=== PATIENT | male | born 1950 | race Caucasian/White ===

== ENCOUNTER 2016-05-25 09:34 | Emergency (ER) | payer OTHER ==
[~2016-05-25] VITALS: Ht 190.5 cm; Wt 88.6 kg
[2016-05-25 09:49] VITALS: BP 144/87; PULSE 88; RESP 14; O2SAT 95
--- NOTE | 2016-05-25 10:35 | ED.REPORT ---
HPI-Psychiatric Illness Date of Service May 25, 2016 ED Provider: Mk Naik MD Pt is a homeless 66 year old male with a history of depression who presents to the ED with concerns for suicidal ideation. He reports that he has recently been incarcerated, and was then residing at [facility]. Pt was evicted from this facility due to not keeping up on his chores. Pt reports that he is suicidal with a plan. He reports that he has "knives in his car" , and has a history of self-induced lacerations. Pt denies any homicidal ideations, substance abuse, or any other concerns. He states that his depression is worsening with the cold weather. Pt denies any fevers, chills, cough, chest pain , shortness of breath or any other physical symptoms. Nursing Notes Stated Complaint: SUICIDAL THOUGHTS Chief Complaint: Psychiatric Complaint Nursing Notes Reviewed: Yes Allergies: Coded Allergies: No Known Allergies (Unverified Allergy, Unknown, 02/08/16) General Time Seen by MD: 10:20 Chief Complaint Suicidal ideation Hx Obtained From: Patient Arrived By: Walk-in Onset Occurred: Onset unknown Symptom Duration: Intermittent Severity: Current: No pain currently Severity: Maximum: No pain Similar Sx Previous: Yes Risk-Psychiatric Illness Suicide Risk Stratification RF Statements: Risk factors reviewed Past Medical History Past Medical History PTSD Bipolar Reports: Cancer Reports: Depression Past Surgical History Hand surgery for a Fx Prostate Family History Noncontributory Smoking History Never Smoker Social History Alcohol Use: >5 per day Drug Use: Denies drug use Other Social History: Local resident Ambulatory Status Independent Review of Systems Constitutional: Denies: Chills, Fever, Malaise Respiratory: Denies: Non-productive cough, Shortness of breath, Wheezing Cardiovascular: Denies: Chest pain GI: Denies: Abdominal pain, Constipation, Diarrhea, Nausea, Vomiting Skin: Denies Diaphoresis Neurologic: Denies: Change LOC, Dizziness, Headache, Syncope, Weakness Psychiatric: Reports: Depression, Suicidal ideation Complete sys rev & neg: except as marked. Physical Exam Initial Vital Signs Vital Signs (First) Date Time Temp Pulse Resp B/P Pulse Ox O2 Delivery O2 Flow Rate FiO2 05/25/16 09:49 36.3 88 14 144/87 95 Room Air Initial VS: Reviewed Head / Eyes: Atraumatic, Normocephalic, PERRL ENT: Mucous membranes moist, Conjunctiva normal, No scleral icterus Neck: Supple, Non-tender, Full range of motion Respiratory: Breath sounds normal, Clear to auscultation, No respiratory distress Skin: Warm, Dry, No cyanosis General/Constitutional: Awake, Alert, Well appearing, Well nourished Neurologic: Oriented X3, Speech NL, No motor deficits, No sensory deficits, CN II - XII intact Psychiatric: Affect NL, Not homicidal, No hallucinations, Judgment/insight NL Abnormal Mood/Affect: Positive: Depressed Abnormal Thinking / Perception: Positive: Suicidal, with plan Re-Eval/Medical Decision Source of Hx: Old records Re-Evaluation/Progress : Time of Eval: 12:16 Re-Evaluation/Progress Note: Pt is rechecked and informed of the plan to discharge him at this time, he understands and agrees, all questions are addressed. Counseled Regarding: Diagnosis, When/why to return to ED Discharge & Departure Impression: Primary Impression: Suicidal ideation Disposition: Home Discharge Condition All VS Reviewed: Yes Condition: Stable Additional Instructions: Go directly to crisis respite. Referrals: [facility] (PCP) Scribe Attestation Portions of this note were transcribed by Juany Howard. I, Dr. Naik personally performed the history, physical exam and medical decision-making; I reviewed and confirmed the accuracy of the information in the transcribed note. Signed by: Juany Zarate, 05/25/2016 12:19 copies to: [facility] Mk Naik MD May 25, 2016 10:35 BART HOWARD May 25, 2016 10:44
== END 2016-05-25 12:25 | disposition home or self-care (01) ==
LOC: SED 09:34
DX: R45.851 Suicidal ideations (principal); Z59.0 Homelessness

== ENCOUNTER 2016-07-13 07:44 | Emergency (ER) | payer OTHER ==
[~2016-07-13] VITALS: Ht 190.5 cm; Wt 86.4 kg
[2016-07-13 07:48] VITALS: BP 158/90; PULSE 94; RESP 16; O2SAT 98
--- NOTE | 2016-07-13 07:56 | ED.REPORT ---
HPI-Psychiatric Illness Date of Service Jul 13, 2016 ED Provider: Kristofer Bustamante Patient is a 66 year old male with a history of depression who presents to the ED complaining of suicidal ideations. Associated symptoms include ideations of self harm and claims that he has many knives in his van. He denies homicidal ideations, hallucinations, or any other symptoms. [facility] that [facility] not [facility]. He states that he has "many legal issues" and is at his wits end about what to do. He says "I don't want to kill myself but I was getting ready to hurt myself". He was started on Effexor 4 days ago. He is currently homeless and living in his van. Nursing Notes Stated Complaint: DEPRESSION/SUICIDAL Chief Complaint: Psychiatric Complaint Nursing Notes Reviewed: Yes Allergies: Coded Allergies: No Known Allergies (Unverified Allergy, Unknown, 02/08/16) General Time Seen by MD: 07:55 Chief Complaint Depressed Hx Obtained From: Patient Arrived By: Walk-in Similar Sx Previous: Yes Risk-Psychiatric Illness Suicide Risk Stratification Suicide Risk Factors - Adult: : Alcohol useNo: Previous attempt, Prior psych admission RF Statements: Risk factors reviewed Past Medical History Past Medical History PTSD Bipolar Reports: Cancer Reports: Depression Past Surgical History Hand surgery for a Fx Prostate Family History Noncontributory Smoking History Former Smoker Social History Self mutilation (cutting wrists) Living in his van Alcohol Use: >5 per day Drug Use: Denies drug use Other Social History: Local resident, Homeless Ambulatory Status Independent Review of Systems Psychiatric: Reports: Depression, Suicidal ideation (Ideation of self-harm), Denies: Hallucinations, auditory, Hallucinations, visual, Homicidal ideation Complete sys rev & neg: except as marked. Physical Exam Initial Vital Signs Vital Signs (First) Date Time Temp Pulse Resp B/P Pulse Ox O2 Delivery O2 Flow Rate FiO2 07/13/16 07:48 35.8 94 16 158/90 98 Room Air Initial VS: Reviewed Head / Eyes: Atraumatic, Normocephalic Neck: Full range of motion Abdomen / GI: Soft, Non-tender Skin: Warm, Dry General/Constitutional: Awake, Alert, Well developed Neurologic: Oriented X3, Speech NL Psychiatric: Not homicidal Abnormal Mood/Affect: Positive: Depressed Respiratory / Chest: Breath sounds NL, Breath sounds = bilat, No respiratory distress Cardiovascular: Heart rate NL, Regular rhythm Interpretation & Diagnostics Lab Results Interpretation Result Diagram: 07/13/16 0820 07/13/16 0820 Test 07/13/16 08:20 07/13/16 08:58 07/13/16 09:10 White Blood Count 4.1th/mm3 (3.8-10.1) Red Blood Count 4.81mil/mm3 (4.40-5.80) Hemoglobin 15.4g/dL (13.8-17.2) Hematocrit 45.3% (41.0-50.0) Mean Corpuscular Volume 94.2fL (81-100) Mean Corpuscular Hemoglobin 32.0pg (27.0-35.0) Mean Corpuscular Hemoglobin Concent 34.0% (32.0-37.0) Red Cell Distribution Width 12.7% (12.3-15.4) Platelet Count 175bil/L (150-400) Neutrophils (%) (Auto) 56.9% (40-74) Lymphocytes (%) (Auto) 29.6% (14-46) Monocytes (%) (Auto) 11.8% (4-12) Eosinophils (%) (Auto) 1.2% (0-5) Basophils (%) (Auto) 0.5% (0-3) Sodium Level 137mEq/L (134-144) Potassium Level 4.4mEq/L (3.5-5.2) Chloride Level 98mEq/L (97-108) Carbon Dioxide Level 23mmol/L (18-29) Blood Urea Nitrogen 16mg/dL (8-27) Creatinine 0.76mg/dL (0.76-1.27) Estimat Glomerular Filtration Rate 108mL/min (>59) Glucose Level 164mg/dL (60-99) Calcium Level 9.5mg/dL (8.5-10.1) Total Bilirubin 0.7mg/dL (0.0-1.2) Aspartate Amino Transf (AST/SGOT) 27U/L (0-50) Alanine Aminotransferase (ALT/SGPT) 16U/L (0-44) Alkaline Phosphatase 67U/L (25-160) Total Protein 7.1g/dL (6.4-8.4) Albumin 4.5g/dL (3.4-5.0) Thyroid Stimulating Hormone (TSH) 1.840uIU/mL (0.450-4.500) Hold Jackson Top Tube Received (Received) Hold Urine Received (Received) Re-Eval/Medical Decision Med Decision/Clinical Course 66-year-old male history of depression and homelessness presenting complaining of thoughts of hurting himself with a knife. When I evaluated him he did not have any intent. Denies any HI. He was more frustrated about living in his car and some legal problems he is going through. No workup was normal. direct service worker saw the patient and thought likely not suicidal risk and stable for discharge. Patient denied SI at time of discharge. He agrees to return immediately should he have any thoughts of hurting himself or others. Re-Evaluation/Progress #1: Time of Eval: 10:45 )( Re-Eval Psychiatric: No danger to self Re-Evaluation/Progress Note: direct service worker informs that patient's "legal troubles" are his 2 DUI's. Will try to contact [facility] to assist patient. Re-Evaluation/Progress #2: Time of Eval: 11:56 )( Re-Eval Psychiatric: No danger to self, No danger to others, No suicidal ideation Re-Evaluation/Progress Note: Discussed plan for discharge. Patient understands and agrees with plan. All questions addressed at this time. Consultation : Consulted With: direct service worker Call Returned at: 11:43 Note: direct service worker evaluated patient and resources. Patient is considered low risk, given resources, and is safe to discharge. Counseled Regarding: Diagnosis, Lab results, Need for follow-up, When/why to return to ED Discharge & Departure Impression: Primary Impression: Suicidal ideation Additional Impression: Depression )( Condition at Discharge: No danger to self, No danger to others, No suicidal ideation, No homicidal ideation Disposition: Home Discharge Condition All VS Reviewed: Yes Condition: Improved Additional Instructions: Thank you for entrusting us with your care. Follow up with the resources the perinatal social worker has provided you. Return to the emergency department immediately if you feel like hurting yourself or others. Referrals: [facility] (PCP) Scribe Attestation Portions of this note were transcribed by Vinay Mahoney. I, Dr. Bustamante personally performed the history, physical exam and medical decision-making; I reviewed and confirmed the accuracy of the information in the transcribed note. Signed by: Vinay Mahoney 07/13/16, 1150 copies to: [facility] Kristofer Bustamante MD Jul 13, 2016 07:56 VINAY MAHONEY Jul 13, 2016 08:07
[2016-07-13 08:32] LABS: BASOPHILS % (AUTO) 0.5 % (0-3); EOSINOPHILS % (AUTO) 1.2 % (0-5); MONOCYTES % (AUTO) 11.8 % (4-12); Mean Corpuscular Volume 94.2 fL (81-100); NEUTROPHILS % (AUTO) 56.9 % (40-74); Platelet Count 175 bil/L (150-400)
[2016-07-13 12:24] VITALS: BP 137/77; PULSE 63; RESP 16; O2SAT 99
== END 2016-07-13 12:25 | disposition home or self-care (01) ==
LOC: SED 07:44
DX: R45.851 Suicidal ideations (principal); F32.9 Major depressive disorder, single episode, unspecified; Z87.891 Personal history of nicotine dependence

== ENCOUNTER 2016-07-15 09:52 | Emergency (ER) | payer OTHER ==
[~2016-07-15] VITALS: Ht 190.5 cm; Wt 86.4 kg
[2016-07-15 10:12] VITALS: BP 150/99; PULSE 66; RESP 18; O2SAT 97
--- NOTE | 2016-07-15 11:19 | ED.REPORT ---
HPI-Psychiatric Illness Date of Service Jul 15, 2016 ED Provider: Doc,Ed History of Present Illness: "suicidial again" called the [place] hot line. plan is any way he can. homeless for 5 months, [place] has no housing per community action. keys are locked in the car since last night. liscense is suspended. Has been staying in the car for a few months "can't do it anymore" primary care is [place] saw psychologist last week given effexor 07/09/2016 started no help so far.life long etoh, last drink friday treatment times 3 times, legal problems Nursing Notes Stated Complaint: SUICIDAL IDEATION Chief Complaint: Psychiatric Complaint Allergies: Coded Allergies: No Known Allergies (Unverified Allergy, Unknown, 02/08/16) Scheduled Venlafaxine ER (Effexor XR) 75 Mg Capsule 75 MG PO DAILY General Time Seen by MD: 11:19 Chief Complaint Suicidal ideation, Other (homeless) Hx Obtained From: Patient Risk-Psychiatric Illness Suicide Risk Stratification Suicide Risk Factors - Adult: : Alcohol use: Previous attempt (was a plastic cutter the ): Prior psych admission (many times for depression at the [place] and here) : Substance abuseNo: Access to firearms, Close associate suicide, Family Hx of Suicide RF Statements: Risk factors reviewed Past Medical History Past Medical History etoH abuse Reports: Cancer Reports: Depression Past Surgical History Hand surgery for a Fx Prostate Family History Noncontributory Smoking History Former Smoker (quit in ) Social History Self mutilation (cutting wrists) Living in his van Alcohol Use: >5 per day Drug Use: Denies drug use Other Social History: Local resident, Homeless (for the last 5 months 07/15/2016) Ambulatory Status Independent Review of Systems Basic Review of Systems Eyes: Vision NL Hematologic: No bleeding, No bruising Allergy / Immune: No allergy Physical Exam Initial Vital Signs Vital Signs (First) Date Time Temp Pulse Resp B/P Pulse Ox O2 Delivery O2 Flow Rate FiO2 07/15/16 10:12 36.7 66 18 150/99 97 Room Air Initial VS: Reviewed, Vital signs normal Head / Eyes: Atraumatic, Normocephalic, PERRL ENT: Mucous membranes moist, Conjunctiva normal, No scleral icterus Neck: Supple, Non-tender, Full range of motion Respiratory: Breath sounds normal, Clear to auscultation, No respiratory distress Cardiovascular: Regular rate & rhythm, Heart sounds normal, Intact distal pulses Abdomen / GI: Soft, Non-tender, No guarding, No rebound, No distention Back: No CVA tenderness Lymphatic: No lymphadenopathy Extremities: Vascular intact, Neuro intact, No swelling, No tenderness Skin: Warm, Dry, No cyanosis General/Constitutional: Awake, Alert, No acute distress, Well appearing, Well developed, Well hydrated, Well nourished, Cooperative, Not toxic appearing Neurologic: Oriented X3, Speech NL, No motor deficits Psychiatric: Affect NL, Mood NL patient with many social stressors. Consult with [facility] Respiratory / Chest: Atraumatic, Breath sounds NL, Breath sounds = bilat, No respiratory distress Cardiovascular: Heart rate NL, Regular rhythm, Heart sounds NL, No gallop Interpretation & Diagnostics Lab Results Interpretation Result Diagram: 07/15/16 1140 07/15/16 1140 Test 07/15/16 11:40 White Blood Count 3.9th/mm3 (3.8-10.1) Red Blood Count 4.60mil/mm3 (4.40-5.80) Hemoglobin 14.5g/dL (13.8-17.2) Hematocrit 43.0% (41.0-50.0) Mean Corpuscular Volume 93.5fL (81-100) Mean Corpuscular Hemoglobin 31.5pg (27.0-35.0) Mean Corpuscular Hemoglobin Concent 33.7% (32.0-37.0) Red Cell Distribution Width 12.5% (12.3-15.4) Platelet Count 173bil/L (150-400) Neutrophils (%) (Auto) 56.0% (40-74) Lymphocytes (%) (Auto) 29.9% (14-46) Monocytes (%) (Auto) 12.2% (4-12) Eosinophils (%) (Auto) 1.6% (0-5) Basophils (%) (Auto) 0.3% (0-3) Sodium Level 136mEq/L (134-144) Potassium Level 4.2mEq/L (3.5-5.2) Chloride Level 97mEq/L (97-108) Carbon Dioxide Level 25mmol/L (18-29) Blood Urea Nitrogen 12mg/dL (8-27) Creatinine 0.75mg/dL (0.76-1.27) Estimat Glomerular Filtration Rate 110mL/min (>59) Glucose Level 99mg/dL (60-99) Calcium Level 8.9mg/dL (8.5-10.1) Total Bilirubin 0.6mg/dL (0.0-1.2) Aspartate Amino Transf (AST/SGOT) 27U/L (0-50) Alanine Aminotransferase (ALT/SGPT) 14U/L (0-44) Alkaline Phosphatase 61U/L (25-160) Total Protein 6.9g/dL (6.4-8.4) Albumin 4.4g/dL (3.4-5.0) Thyroid Stimulating Hormone (TSH) 1.610uIU/mL (0.450-4.500) Hold Jackson Top Tube Received (Received) Lab Results Interpretation: ETOH is negative Re-Eval/Medical Decision Med Decision/Clinical Course 66 year old male with many social stressors presents with SI. vegetable worker evualates him and [facility] something he needs. Discharge & Departure Impression: Primary Impression: Acute situational disturbance Additional Instructions: Social work has arranged to have the police come and try to open your car. You then need to go [facility] to [facility] and sit until you get a response as to how much help you can expect [facility] the [facility]. If you dod not get an answer to day , return tomorrow. You may also request alcohol treatment from them, that may be helpful. [facility] [place] Referrals: [facility]) EDSupervising Provider for APC: Mk Naik MD copies to: [facility] Ayanna Natarajan Jul 15, 2016 11:19
[2016-07-15] MEDS ORDERED: VENL75CA PO (11:28)
[2016-07-15 11:50] LABS: BASOPHILS % (AUTO) 0.3 % (0-3); EOSINOPHILS % (AUTO) 1.6 % (0-5); MONOCYTES % (AUTO) 12.2 % (4-12); Mean Corpuscular Hemoglobin 31.5 pg (27.0-35.0); Mean Corpuscular Volume 93.5 fL (81-100); Platelet Count 173 bil/L (150-400)
[2016-07-15 13:34] VITALS: BP 128/68; PULSE 68; RESP 20; O2SAT 98
== END 2016-07-15 13:35 ==
LOC: SED 09:52
DX: F43.0 Acute stress reaction (principal); Z87.891 Personal history of nicotine dependence; Z59.0 Homelessness

== ENCOUNTER 2016-07-15 15:51 | Emergency (ER) | payer OTHER ==
[~2016-07-15 15:51] MED LIST: VENL75CA PO
[2016-07-15 15:53] VITALS: BP 144/79; PULSE 71; RESP 16; O2SAT 97
--- NOTE | 2016-07-15 15:56 | ED.REPORT ---
HPI-Psychiatric Illness Date of Service Jul 15, 2016 ED Provider: History of Present Illness: [facility]. "Was sent there earlier today to discuss housing options" Sent back to the ER for SI evualation Nursing Notes Stated Complaint: PSYCH EVAL Chief Complaint: Psychiatric Complaint Nursing Notes Reviewed: Yes Allergies: Coded Allergies: No Known Allergies (Unverified Allergy, Unknown, 02/08/16) Scheduled Venlafaxine ER (Effexor XR) 75 Mg Capsule 75 MG PO DAILY General Time Seen by MD: 15:55 Chief Complaint Suicidal ideation, Other (homeless) Hx Obtained From: Patient Onset Occurred: More than a week ago... (5 months) Symptom Duration: Since onset Risk-Psychiatric Illness Suicide Risk Stratification Suicide Risk Factors - Adult: : Alcohol use: Previous attempt (cutting): Prior psych admission (many times): Substance abuseNo: Access to firearms, Close associate suicide, Family Hx of Suicide RF Statements: Risk factors reviewed Past Medical History Past Medical History etoH abuse Reports: Cancer Reports: Depression Past Surgical History Hand surgery for a Fx Prostate Family History Noncontributory Smoking History Former Smoker Social History Self mutilation (cutting wrists) Living in his van Alcohol Use: >5 per day Drug Use: Denies drug use Other Social History: Local resident, Homeless Ambulatory Status Independent Review of Systems Basic Review of Systems Eyes: Vision NL Hematologic: No bleeding, No bruising Allergy / Immune: No allergy Physical Exam Initial Vital Signs Vital Signs (First) Date Time Temp Pulse Resp B/P Pulse Ox O2 Delivery O2 Flow Rate FiO2 07/15/16 15:53 36.1 71 16 144/79 97 Room Air Initial VS: Reviewed, Vital signs normal Head / Eyes: Atraumatic, Normocephalic, PERRL ENT: Mucous membranes moist, Conjunctiva normal, No scleral icterus Neck: Supple, Non-tender, Full range of motion Respiratory: Breath sounds normal, Clear to auscultation, No respiratory distress Cardiovascular: Regular rate & rhythm, Heart sounds normal, Intact distal pulses Abdomen / GI: Soft, Non-tender, No guarding, No rebound, No distention Back: No CVA tenderness Lymphatic: No lymphadenopathy Extremities: Vascular intact, Neuro intact, No swelling, No tenderness Skin: Warm, Dry, No cyanosis General/Constitutional: Awake, Alert, No acute distress, Well appearing, Well developed, Well hydrated, Well nourished, Cooperative, Not toxic appearing Neurologic: Oriented X3, Speech NL, No motor deficits, No sensory deficits, CN II - XII intact, Reflexes equal bilat Psychiatric: Affect NL, Mood NL Head / Eyes: Atraumatic, Normocephalic, PERRL, EOMI Respiratory / Chest: Atraumatic, Breath sounds NL, Breath sounds = bilat, No respiratory distress Cardiovascular: Heart rate NL, Regular rhythm, Heart sounds NL Abdomen: Atraumatic, Soft, Non-tender Interpretation & Diagnostics Lab Results Interpretation Test 07/15/16 19:53 Hold Urine Received (Received) Lab Results Interpretation: u tox is negative Re-Eval/Medical Decision Med Decision/Clinical Course 66 year old male returns to the ER after being sent to the [place] for help with housing. Patient has many social stressors having been living in his care for the last 5 months. Patient is accepted at [facility] and will be transported there. [place] is in charge of transport and am awaiting phone call with timing. [place] requests [facility] and vitals right before transport. care turned over to Dr. Lozano Discharge & Departure Impression: Primary Impression: Acute situational disturbance Disposition: Transfer, [place] EDSupervising Provider for APC: Shalom Lozano MD copies to: [facility] Ayanna Natarajan Jul 15, 2016 15:56 Ayanna Natarajan Jul 15, 2016 15:56
[2016-07-15 21:47] VITALS: BP 103/67; PULSE 88; O2SAT 97
[2016-07-15 22:29] VITALS: BP 103/67; PULSE 88; RESP 16; O2SAT 97
== END 2016-07-15 22:30 ==
LOC: SED 15:51
DX: F43.0 Acute stress reaction (principal); F32.9 Major depressive disorder, single episode, unspecified; Z59.0 Homelessness; Z87.891 Personal history of nicotine dependence; Z85.9 Personal history of malignant neoplasm, unspecified; Z91.5 Personal history of self-harm

== ENCOUNTER 2016-07-23 05:57 | Emergency (ER) | payer OTHER ==
[~2016-07-23] VITALS: Ht 190.5 cm; Wt 88.6 kg
[2016-07-23 06:03] VITALS: BP 152/93; PULSE 77; RESP 16; O2SAT 98
--- NOTE | 2016-07-23 06:09 | ED.REPORT ---
HPI-General Illness Date of Service Jul 23, 2016 ED Provider: Joon Bradshaw MD The patient is a 66 year old male with history of alcohol abuse, self mutilation , and depression, who presents to the emergency department complaining of depression and homelessness. The patient states he was recently admitted to the [facility] for 1 week for similar symptoms and was discharged yesterday. The patient states he came back to [place] to fill out his social security and go to a court review. When he got to court yesterday he was wet and started to feel like he did before he was admitted. He does not feel like his depression is improving. He is currently on Effexor for his depression. He does not have any family or support in the area. He has been homeless for 6 months. He is currently getting $1072 a month from the [place] pension but has been unable to be organized enough to get a place to live. He does report thoughts of suicide but he does not have any active plans. He does not have a counselor or psychiatrist that he sees regularly. He denies any physical complaints. Nursing Notes Stated Complaint: DEPRESSED/HOMELESS Chief Complaint: Psychiatric Complaint Nursing Notes Reviewed: Yes Allergies: Coded Allergies: No Known Allergies (Unverified Allergy, Unknown, 02/08/16) Scheduled Venlafaxine ER (Effexor XR) 75 Mg Capsule 75 MG PO DAILY General Time Seen by MD: 06:08 Chief Complaint Other (depressed/homeless) Hx Obtained From: Patient Arrived By: Walk-in Sudden in Onset?: No Onset Occurred: More than a week ago... Symptom Duration: Since onset Severity: Current: No pain currently Severity: Maximum: No pain Recent Healthcare: Recent doctor visit, Recent hospitalization Similar Sx Previous: Yes Past Medical History Past Medical History EtOH abuse Reports: Cancer Reports: Depression Past Surgical History Hand surgery for a Fx Prostate surgery Family History Noncontributory Smoking History Former Smoker Social History Self mutilation (cutting wrists) Alcohol abuse Living in his van Alcohol Use: >5 per day Drug Use: Denies drug use Other Social History: Poor social support, Local resident, Homeless Ambulatory Status Independent Review of Systems Full Review of Systems Constitutional: Denies: Chills, Fever Respiratory: Denies: Non-productive cough, Shortness of breath Cardiovascular: Denies: Chest pain GI: Denies: Abdominal pain, Diarrhea, Nausea, Vomiting Skin: Denies Rash Neurologic: Denies: Headache Psychiatric: Reports: Depression, Suicidal ideation Complete sys rev & neg: except as marked. Physical Exam Vital Signs Vital Signs Date Time Temp Pulse Resp B/P Pulse Ox O2 Delivery O2 Flow Rate FiO2 07/23/16 06:03 36.3 77 16 152/93 98 Room Air Initial VS: Reviewed Head / Eyes: Atraumatic, Normocephalic, PERRL ENT: Mucous membranes moist, Conjunctiva normal, No scleral icterus Neck: Supple, Non-tender, Full range of motion Respiratory: Breath sounds normal, Clear to auscultation, No respiratory distress Cardiovascular: Regular rate & rhythm, Heart sounds normal, Intact distal pulses Abdomen / GI: Soft, Non-tender, No guarding, No rebound, No distention Lymphatic: No lymphadenopathy Extremities: Vascular intact, Neuro intact, No swelling, No tenderness Skin: Warm, Dry, No cyanosis Neurologic: Alert, Oriented, Nonfocal General/Constitutional: Awake, Alert, Cooperative Abnormal Mood/Affect: Positive: Flat affect (slightly) Abnormal Thinking / Perception: Positive: Suicidal, no plan Vague suicidal thoughts without any plan or intent Re-Eval/Medical Decision Med Decision/Clinical Course The patient is a 66 year old male with history of alcohol abuse, self mutilation , and depression, who presents to the emergency department complaining of depression and homelessness. The patient states he was recently admitted to the [facility] for 1 week for similar symptoms and was discharged yesterday. The patient states he came back to [place] to fill out his social security and go to a court review. When he got to court yesterday he was wet and started to feel like he did before he was admitted. He does not feel like his depression is improving. He is currently on Effexor for his depression. He does not have any family or support in the area. He has been homeless for 6 months. He is currently getting $1072 a month from the [place] pension but has been unable to be organized enough to get a place to live. He does report thoughts of suicide but he does not have any active plans. He does not have a counselor or psychiatrist that he sees regularly. He denies any physical complaints. UDS: negative ETOH: negative Through the emergency department patient afebrile with stable vital signs distress. He does report some vague suicidal ideation he denies any suicidal plan or intent. He states that his primary call for, to the emergency department today is to obtain help with housing resources. He is linear, organized and future oriented. Patient was seen and evaluated by our emergency department social service agency director provided with additional resources in conjunction with consultation to [facility]/ [facility] (it sounds as if the patient may be able to get housing placement tomorrow). He is not felt upon my assessment or that of our social service agency director to pose any immediate threat of harm to himself or others. He does not seem decompensated from a psychiatric perspective. The patient does have resources with current fixed income and a vehicle in which she is currently living. He will follow-up with additional resources were provided by her social service agency director as well as through the [facility]. Follow-up and return precautions were reviewed in detail with the patient including any thoughts of hopelessness or suicidal ideation/plan. Patient will verbalize understanding and agreement with the plan is arranged between myself and social service agency director and he was discharged in stable condition. Source of Hx: Old records Consultation #1: Consulted With: cut out worker Call Returned at: 09:33 Note: Discussed the patient's case with the ED social service agency director. Consultation #2: Consulted With: cut out worker Call Returned at: 11:17 Note: Armando from [facility] will come and discuss housing options with the patient and then he will be discharged. Consultation #3: Consulted With: cut out worker Call Returned at: 12:11 Note: The patient was evaluated by Armando Plascencia from [facility]. He thinks he might have a bed for him in the near future. The patient will be discharged today with instructions to followup with Armando Plascencia. Counseled Regarding: Diagnosis, Lab results, Need for follow-up, When/why to return to ED Discharge & Departure Primary Impression: Homelessness Additional Impression: Depression Depression Type: unspecified Qualified Code: F32.9 - Major depressive disorder, single episode, unspecified Disposition: Home Discharge Condition All VS Reviewed: Yes Condition: Stable Additional Instructions: Thank you for seeking care at the emergency room. Our primary goal today in the ED was to evaluate you for any life-threatening conditions. Your evaluation was reassuring. Followup with [facility] Plascencia in the next 24 hours for housing options. Please followup at the [facility] in the next week for re-evaluation. You should return to the ED immediately if you develop suicidal thoughts or any other concerning signs or symptoms. Thank you for letting us partake in your care today. Referrals: [facility] (PCP) Scribrosalino Attestation Portions of this note were transcribed by Natividad Santacruz. I, Dr. Bradshaw personally performed the history, physical exam and medical decision-making; I reviewed and confirmed the accuracy of the information in the transcribed note. Signed by: Tessa So, 07/23/2016 at 1216. copies to: [facility] Joon Bradshaw MD Jul 23, 2016 06:09 Natividad Santacruz Jul 23, 2016 06:16
[2016-07-23 12:27] VITALS: BP 132/75; PULSE 83; RESP 20; O2SAT 98
== END 2016-07-23 12:28 | disposition home or self-care (01) ==
LOC: SED 05:57
DX: F32.9 Major depressive disorder, single episode, unspecified (principal); Z59.0 Homelessness; Z87.891 Personal history of nicotine dependence

== ENCOUNTER 2016-07-25 17:40 | Emergency (ER) | payer OTHER ==
[~2016-07-25] VITALS: Ht 190.5 cm; Wt 86.4 kg
[2016-07-25 17:41] VITALS: BP 140/89; PULSE 87; RESP 15; O2SAT 100
--- NOTE | 2016-07-25 19:30 | ED.REPORT ---
HPI-Psychiatric Illness Date of Service Jul 25, 2016 ED Provider: Rosa Perry MD Patient is a 66 year old male with a history of alcohol abuse, depression with prior suicide attempt, and recent psychiatric admission who presents to the ED complaining of increasing suicidal ideations since being discharged from the [facility] 2 days ago. Patient states that he would cut his wrists to commit suicide, which is something he has done previously. He simply "feels like crap" . He denies any recent stressors or traumatic event in his life. However, review of the patient's most recent ED visit on 07/23 shows that the patient has been quite concerned about his living situation. Patient had a consultation with [facility] at that time, who was going to place the patient into housing in the near future. The patient is currently living in his car. Patient was recently admitted to the [facility] for 7 days, due to suicidal ideations. Patient is on several psychiatric medications which he has been taking as prescribed. Patient denies homicidal ideations, auditory hallucinations, or visual hallucinations. Patient denies any medical complaints. Nursing Notes Stated Complaint: DEPRESSION/SUICIDAL Chief Complaint: Psychiatric Complaint Nursing Notes Reviewed: Yes Allergies: Coded Allergies: No Known Allergies (Verified Allergy, Unknown, 07/25/16) Scheduled Venlafaxine ER (Effexor XR) 75 Mg Capsule 75 MG PO DAILY General Time Seen by MD: 19:28 Chief Complaint Depressed, Suicidal ideation Hx Obtained From: Patient Arrived By: Walk-in Onset Occurred: 2 days ago Symptom Duration: Since onset Progression Since Onset: Gradually worsening Severity: Current: No pain currently Severity: Maximum: No pain Recent Healthcare: Recent doctor visit, Recent hospitalization Similar Sx Previous: Yes Risk-Psychiatric Illness Suicide Risk Stratification Suicide Risk Factors - Adult: : Alcohol use: Previous attempt: Prior psych admission RF Statements: Risk factors reviewed Past Medical History Past Medical History EtOH abuse depression suicidal ideations with prior suicide attempt via cutting wrists prior psychiatric admission Reports: Cancer, Denies: Diabetes mellitus, Hypertension Reports: Depression Past Surgical History Hand surgery for a Fx Prostate surgery Family History Noncontributory Smoking History Former Smoker Social History Self mutilation (cutting wrists) Alcohol abuse Living in his van Alcohol Use: >5 per day Drug Use: Denies drug use Other Social History: Poor social support, Local resident, Homeless Ambulatory Status Independent Review of Systems Constitutional: Denies: Chills, Fever Psychiatric: Reports: Depression, Suicidal ideation, Denies: Hallucinations, auditory, Hallucinations, visual, Homicidal ideation Complete sys rev & neg: except as marked. Physical Exam Initial Vital Signs Vital Signs (First) Date Time Temp Pulse Resp B/P Pulse Ox O2 Delivery O2 Flow Rate FiO2 07/25/16 17:41 35.8 87 15 140/89 100 Room Air Initial VS: Reviewed Head / Eyes: Atraumatic, Normocephalic, PERRL ENT: Conjunctiva normal, No scleral icterus Neck: Supple, Full range of motion Respiratory: Breath sounds normal, Clear to auscultation, No respiratory distress Cardiovascular: Regular rate & rhythm, Heart sounds normal Abdomen / GI: Soft, Non-tender Extremities: Vascular intact, Neuro intact Skin: Warm, Dry, No cyanosis General/Constitutional: Awake, Alert Neurologic: Oriented X3, Speech NL, No motor deficits, No sensory deficits Psychiatric: Not homicidal, No hallucinations Abnormal Mood/Affect: Positive: Depressed, Flat affect Abnormal Thinking / Perception: Positive: Suicidal, with plan Interpretation & Diagnostics Lab Results Interpretation Result Diagram: 07/25/16193907/25/161939 Test 07/25/16 18:15 07/25/16 19:40 Hold Urine Received (Received) White Blood Count 5.2th/mm3 (3.8-10.1) Red Blood Count 4.70mil/mm3 (4.40-5.80) Hemoglobin 14.8g/dL (13.8-17.2) Hematocrit 44.8% (41.0-50.0) Mean Corpuscular Volume 95.3fL (81-100) Mean Corpuscular Hemoglobin 31.5pg (27.0-35.0) Mean Corpuscular Hemoglobin Concent 33.0% (32.0-37.0) Red Cell Distribution Width 13.4% (12.3-15.4) Platelet Count 195bil/L (150-400) Neutrophils (%) (Auto) 47.5% (40-74) Lymphocytes (%) (Auto) 36.5% (14-46) Monocytes (%) (Auto) 12.7% (4-12) Eosinophils (%) (Auto) 2.5% (0-5) Basophils (%) (Auto) 0.4% (0-3) Sodium Level 140mEq/L (134-144) Potassium Level 5.2mEq/L (3.5-5.2) Chloride Level 100mEq/L (97-108) Carbon Dioxide Level 25mmol/L (18-29) Blood Urea Nitrogen 11mg/dL (8-27) Creatinine 0.81mg/dL (0.76-1.27) Estimat Glomerular Filtration Rate 101mL/min (>59) Glucose Level 92mg/dL (60-99) Calcium Level 8.7mg/dL (8.5-10.1) Total Bilirubin 0.2mg/dL (0.0-1.2) Aspartate Amino Transf (AST/SGOT) 29U/L (0-50) Alanine Aminotransferase (ALT/SGPT) 17U/L (0-44) Alkaline Phosphatase 65U/L (25-160) Total Protein 6.9g/dL (6.4-8.4) Albumin 4.5g/dL (3.4-5.0) Thyroid Stimulating Hormone (TSH) 2.520uIU/mL (0.450-4.500) Hold Jackson Top Tube Received (Received) Alcohols 82mg/dL (0-10) Re-Eval/Medical Decision Med Decision/Clinical Course 66-year-old male with past medical history of hypertension and depression here stating he is suicidal and that he will cut his arms. Differential diagnosis includes but is not limited to alcohol versus other intoxication versus electrolyte abnormality versus suicidal ideation. Patient was recently discharged from the [facility], was seen here several days ago, given resources for housing. It is possible at this time, that he is malingering and trying to stay off the streets, however, he seems very serious about his suicidal ideation. At this time, I do not feel comfortable discharging him. I will keep him overnight until he can be evaluated by social work. He is medically cleared otherwise. Source of Hx: Old records Re-Evaluation/Progress : Time of Eval: 20:52 Re-Evaluation/Progress Note: Patient was informed that he will have to stay in the ED overnight, pending TEAM TRUCK DRIVER evaluation in the morning. Patient understands and agrees with this plan. All questions were addressed. Discharge & Departure Shift Change Sign-Out Patient Care Transferred: Yes Discussed Complaint(s): Yes Laboratory Evaluation: Back, reviewed by me Additonal Information: Awaiting TEAM TRUCK DRIVER evaluation Impression: Primary Impression: Suicidal ideation Additional Impressions: Depression Depression Type: major depressive disorder Major depression recurrence: recurrent Active/Remission status: currently active Major depression episode severity: moderate Qualified Code: F33.1 - Major depressive disorder, recurrent, moderate Homelessness [facility] Care Transferred to: Dr. Rodriguez Care Transferred at: 03:00 Tessa Attestation Portions of this note were transcribed by Sherrie Moreno. I, Dr. Perry personally performed the history, physical exam and medical decision-making; I reviewed and confirmed the accuracy of the information in the transcribed note. Signed by: Tessa Martinez, 07/25/20162051 copies to: [facility] Rosa Perry MD Jul 25, 2016 19:29 Sherrie Moreno Jul 25, 2016 19:43
[2016-07-25 19:51] LABS: BASOPHILS % (AUTO) 0.4 % (0-3); EOSINOPHILS % (AUTO) 2.5 % (0-5); MONOCYTES % (AUTO) 12.7 % (4-12); Mean Corpuscular Hemoglobin 31.5 pg (27.0-35.0); Mean Corpuscular Volume 95.3 fL (81-100); NEUTROPHILS % (AUTO) 47.5 % (40-74); Platelet Count 195 bil/L (150-400)
[2016-07-25 21:46] VITALS: BP 137/76; PULSE 89; RESP 18; O2SAT 99
--- NOTE | 2016-07-26 06:24 | PCM.EDPN ---
ED Note Date of Service Jul 26, 2016 I assumed care of this patient at approximately [address] Rodriguez who had an internet e commerce specialist received signout from Dr. Perry who initially evaluated the patient. I have reviewed Dr. Perry's note in detail and will proceed with the plan outlined by her, namely bilingual social worker evaluation later this morning. At the current time he is resting comfortably in a seclusion room with the door open. Mk Naik MD Jul 26, 2016 06:24
[2016-07-26 07:10] VITALS: BP 135/82; PULSE 78; RESP 16; O2SAT 97
[2016-07-26 10:41] VITALS: BP 136/79; PULSE 77; RESP 12; O2SAT 98
== END 2016-07-26 11:28 | disposition home or self-care (01) ==
LOC: SED 17:40
DX: F33.1 Major depressive disorder, recurrent, moderate (principal); R45.851 Suicidal ideations; Z59.0 Homelessness; Z91.5 Personal history of self-harm; Z87.891 Personal history of nicotine dependence
CPT/HCPCS: 36415; 80053; 81002; 82075; 84443; 85025; 99284; G0480

== ENCOUNTER 2016-09-05 18:03 | Emergency (ER) | payer OTHER ==
[~2016-09-05] VITALS: Ht 190.5 cm; Wt 88.6 kg
[2016-09-05 18:10] VITALS: BP 108/67; PULSE 70; RESP 18; O2SAT 96
--- NOTE | 2016-09-05 19:08 | ED.REPORT ---
HPI-Psychiatric Illness Date of Service Sep 05, 2016 ED Provider: Sergio Cortes PA-C Lv is a 50-year-old male with chief complaint of depression. Patient reports a feeling of aimlessness. He is homeless and lives in his van. He reports worsening depression over the last several months including suicidal ideation. He says "I put on like I have somewhat ago, but I really have nothing to do. I do not want to be like that. I want to be successful and creative." Patient states he was encouraged to be seen in the urgent care earlier today by "people who know me well" out of concern for his well-being. He was referred to the emergency department by urgent care. Patient states that he thinks he might starve himself or walk out into traffic. Patient states that he has had many opportunities to kill himself in the past but has not because he has an aversion to blood. The patient states that in the 90s had an episode where he was cutting at his wrist with a razor blade but could not bring himself to his veins. He reports a history of hospitalizations for depression including electroshock therapy in the 70s. He reports a history of alcohol abuse admitting to up to 6 beers per day. He reports several admissions to crisis respite, but feels she did not get much out of it because he was not ready for it. He is currently prescribed Effexor by the [facility], which he states he is taking. He denies access to firearms, suicide by close contacts or family. She states that if he were discharged tonight, he would be unlikely to commit suicide. He is concerned about the long-term. He cannot articulate what he hopes to gain from being seen in the emergency department. Nursing Notes Stated Complaint: MENTAL HEALTH EVAL FROM Chief Complaint: Psychiatric Complaint Nursing Notes Reviewed: Yes Allergies: Coded Allergies: No Known Allergies (Verified Allergy, Unknown, 07/25/16) Scheduled Venlafaxine ER (Effexor XR) 75 Mg Capsule 75 MG PO DAILY General Time Seen by MD: 18:40 Chief Complaint Suicidal ideation Risk-Psychiatric Illness Suicide Risk Stratification Suicide Risk Factors - Adult: : Alcohol use: Previous attempt: Prior psych admissionNo: Access to firearms, Close associate suicide, Family Hx of Suicide, Substance abuse RF Statements: Risk factors reviewed Past Medical History Past Medical History EtOH abuse depression suicidal ideations with prior suicide attempt via cutting wrists prior psychiatric admission Reports: Cancer Reports: Depression Past Surgical History Hand surgery for a Fx Prostate surgery Family History Noncontributory Smoking History Former Smoker Social History Self mutilation (cutting wrists) Alcohol abuse Living in his van Alcohol Use: >5 per day Drug Use: Denies drug use Other Social History: Poor social support, Local resident, Homeless Ambulatory Status Independent Review of Systems General: Denies fever, chills, malaise. HEENT: Denies congestion, headache, sore throat. Respiratory: Denies dyspnea, cough, shortness of breath, wheezing. Cardiovascular: Denies chest pain, palpitations. Gastrointestinal: Denies vomiting, diarrhea, abdominal pain. Genitourinary: Denies frequency, urgency, dysuria, hematuria. Otherwise as noted in HPI. Physical Exam General: Well appearing, well developed, well nourished, no acute distress. Well-groomed, but clothes notably dirty. Head: Atraumatic, normocephalic. No mastoid tenderness. Eyes: No scleral icterus or injection. No discharge. PERRL. Vision grossly intact. Ears: Pinna and tragus nontender with manipulation. External auditory canal patent, atraumatic and without discharge. Tympanic membrane french, shiny and translucent without fluid, bulging, retraction or perforation. Hearing grossly intact. Nose: Symmetrical, nares patent without discharge. No frontal or maxillary sinus tenderness. Mouth/pharynx: normal dentition, mucus membranes moist. Tonsils 2+ and symmetrical, uvula midline. Pharynx noninjected, no cobblestoning or discharge. Voice clear. Neck: No tenderness or lymphadenopathy. Trachea midline. Respiratory: Regular rate and rhythm. Breath sounds present, clear to auscultation and equal bilaterally. No respiratory distress. No increased work of breathing, speaks in complete sentences. Cardiovascular: Regular rate and rhythm, without murmur, gallop or rub. No pedal edema. Gastrointestinal: Abdomen flat and non-tender without guarding or rebound. Bowel sounds normoactive. Skin: Warm and dry. Neurological: Grossly nonfocal. Psychological: Somewhat flat affect. Alert and oriented. Speech appropriate, linear and logical. Initial Vital Signs Vital Signs (First) Date Time Temp Pulse Resp B/P Pulse Ox O2 Delivery O2 Flow Rate FiO2 4/27/17 18:10 36.4 70 18 108/67 96 Room Air Initial VS: Vital signs normal Discharge & Departure Shift Change Sign-Out Patient Care Transferred: Yes (Dr. Lozano) Discussed Complaint(s): Yes Laboratory Evaluation: Lab evaluation discussed Impression: Primary Impression: Suicidal ideation [facility]: [facility] EDSupervising Provider for APC: Shalom Lozano MD, Seth PA-C Sep 05, 2016 19:08
[2016-09-05 21:06] VITALS: BP 100/60; PULSE 72; RESP 20; O2SAT 99
[2016-09-06 03:55] VITALS: BP 139/81; PULSE 68; RESP 14; O2SAT 99
[2016-09-06 06:23] VITALS: BP 143/68; PULSE 62; RESP 14; O2SAT 97
[2016-09-06 06:40] LABS: BASOPHILS % (AUTO) 0.3 % (0-3); MONOCYTES % (AUTO) 12.5 % (4-12); Mean Corpuscular Hemoglobin 30.9 pg (27.0-35.0); Mean Corpuscular Volume 94.6 fL (81-100); NEUTROPHILS % (AUTO) 41.4 % (40-74); Platelet Count 156 bil/L (150-400)
== END 2016-09-06 12:00 | disposition home or self-care (01) ==
LOC: SED 18:03
DX: R45.851 Suicidal ideations (principal); F32.9 Major depressive disorder, single episode, unspecified; Z59.0 Homelessness; Z91.5 Personal history of self-harm; Z87.891 Personal history of nicotine dependence